=== PATIENT | female | born 1995 | race Caucasian/White ===

== ENCOUNTER 2019-08-17 11:07 | Emergency (ER) | payer BC ==
--- NOTE | 2019-08-17 12:02 | EDM.PDOC ---
ED HPI GENERAL MEDICAL PROBLEM - General Chief Complaint: Respiratory Problem Stated Complaint: FEVER Time Seen by Provider: 08/17/19 11:26 Source of Information: Reports: Patient History Limitations: Reports: No Limitations - History of Present Illness INITIAL COMMENTS - FREE TEXT/NARRATIVE: The patient presents with a cough. This has been going on for over a week. Her son had influenza a couple weeks ago. She has no fever now but she did earlier in the week. She has no shortness of breath. She has no congestion or runny nose. She has no abdominal pain, nausea or vomiting. She has no history of asthma. She does not smoke but she does vape. Onset: Gradual Duration: Week(s): Severity: Moderate Improves with: Reports: None Worsens with: Reports: None Associated Symptoms: Reports: Cough. Denies: Chest Pain, Fever/Chills, Headaches, Nausea/Vomiting, Shortness of Breath Upper Abdomen Pain Score (Numeric/FACES): 6 - Related Data Allergies Allergy/AdvReac Type Severity Reaction Status Date / Time No Known Allergies Allergy Verified 08/17/19 11:21 Home Meds: Home Meds . [No Known Home Meds] 08/17/19 [History] Past Medical History - Past Health History Medical/Surgical History: Denies Medical/Surgical History ED ROS GENERAL - Review of Systems Review Of Systems: See Below Constitutional: Reports: No Symptoms HEENT: Reports: No Symptoms Respiratory: Reports: Cough. Denies: Shortness of Breath Cardiovascular: Reports: No Symptoms Endocrine: Reports: No Symptoms GI/Abdominal: Reports: No Symptoms ED EXAM, GENERAL - Physical Exam Exam: See Below Exam Limited By: No Limitations General Appearance: Alert, No Apparent Distress Ears: Normal External Exam, Normal Canal, Normal TMs Nose: Normal Inspection Throat/Mouth: Normal Inspection Head: Atraumatic, Normocephalic Neck: Normal Inspection Respiratory/Chest: No Respiratory Distress, Lungs Clear, Normal Breath Sounds Cardiovascular: Regular Rate, Rhythm, No Edema, No Murmur GI/Abdominal: Soft, Non-Tender, No Organomegaly, No Mass Back Exam: Normal Inspection Extremities: Normal Inspection Course - Vital Signs Last Recorded V/S: Last Vital Signs Temp 97.9 F 08/17/19 11:21 Pulse 82 08/17/19 11:21 Resp 16 08/17/19 11:21 BP 104/78 08/17/19 11:21 Pulse Ox 97 08/17/19 11:21 - Orders/Labs/Meds Orders: Active Orders 24 hr Category Date Time Status CXR [Chest 2V] [CR] Stat Exams 08/17/19 11:34 Taken - Re-Assessments/Exams Free Text/Narrative Re-Assessment/Exam: 08/17/19 12:01 I ordered a CXR and it looks good. I feel she has a viral URI. I will give her an albuterol inhaler from here. Departure - Departure Time of Disposition: 12:20 Disposition: Home, Self-Care 01 Condition: Good Clinical Impression: Viral URI - Discharge Information *PRESCRIPTION DRUG MONITORING PROGRAM REVIEWED*: No *COPY OF PRESCRIPTION DRUG MONITORING REPORT IN PATIENT JALYN: No Referrals: PCP,None [Primary Care Provider] - Forms: ED Department Discharge Additional Instructions: Take the over the counter medications like you were taking. Drink plenty of fluids. Take motrin or tylenol for any fever. Try the albuterol 2 puffs every 6 hours as needed for shortness of breath. Please return if you are worse. Sepsis Event Note - Evaluation Sepsis Screening Result: No Definite Risk - Focused Exam Vital Signs: Vital Signs Temp Pulse Resp BP Pulse Ox 08/17/19 11:21 97.9 F 82 16 104/78 97 Date Exam was Performed: 08/17/19 Time Exam was Performed: 12:14 - My Orders Last 24 Hours: My Active Orders 08/17/19 11:34 CXR [Chest 2V] [CR] Stat - Assessment/Plan Last 24 Hours: My Active Orders 08/17/19 11:34 CXR [Chest 2V] [CR] Stat
[2019-08-17] MEDS ORDERED: Albuterol 6.7 GM Inhaler INH ONE (12:14)
--- NOTE | 2019-08-18 07:25 | CR ---
Chest: PA and lateral views of the chest were obtained. Comparison: No prior chest imaging. Heart size and mediastinum are normal. Lungs are clear. Bony structures are unremarkable. Impression: 1. Nothing acute is seen on two-view chest x-ray. Diagnostic code #1 This report was dictated in [place] Standard Time
== END 2019-08-17 12:35 | disposition home or self-care (01) ==
LOC: JD.ED 11:07
DX: J06.9 Acute upper respiratory infection, unspecified (principal)
CPT/HCPCS: 71046; 94640; 99283; A9270; 99281

== ENCOUNTER 2022-01-03 18:20 | Emergency (ER) | payer BC ==
[2022-01-03 21:06] LABS: C. TRACHOMATIS BY PCR NOT DETECTED; N. GONORRHOEAE BY PCR NOT DETECTED
== END 2022-01-03 21:25 | disposition home or self-care (01) ==
LOC: JD.ED 18:20
DX: O23.591 Infection of other part of genital tract in pregnancy, first trimester (principal); B96.89 Other specified bacterial agents as the cause of diseases classified elsewhere; Z3A.10 10 weeks gestation of pregnancy
CPT/HCPCS: 36415; 80053; 81001; 85025; 87210; 87491; 87591; 87808; 99283

== ENCOUNTER 2022-07-17 21:20 | Inpatient (IN) | payer MEDICAID ==
[2022-07-17] MEDS ORDERED: Sodium Chloride 0.9% 10 ML Syringe FLUSH PRN (22:23)
[2022-07-17] MEDS ORDERED: Ondansetron 4 MG/2 ML SDV IVPUSH PRN (22:23)
[2022-07-17] MEDS ORDERED: Lidocaine 1% 50 ML MDV INJECT ONE (22:23)
[2022-07-17] MEDS ORDERED: Nalbuphine HCl 10 MG/ 1ML Amp IVPUSH PRN (22:23)
[2022-07-17] MEDS ORDERED: Oxytocin/Lactated Ringers 10 UNIT/1,000 ML BAG IV SCH (22:30)
[2022-07-17] MEDS ORDERED: fentaNYL 100 MCG/2 ML SDV EPIDUR PRN (22:53)
[2022-07-17] MEDS ORDERED: Bupivacaine/fentaNYL/NS 100 ML Bag EPIDUR PRN (22:53)
[2022-07-17] MEDS ORDERED: ePHEDrine 50 MG/ML SDV IVPUSH PRN (22:53)
[2022-07-17] MEDS ORDERED: diphenhydrAMINE 50 MG/ML SDV IVPUSH PRN (22:53)
[2022-07-17] MEDS: Lactated Ringers 1,000 ML IV SCH ×2 (23:05→23:55)
[2022-07-18] MEDS: Lactated Ringers 1,000 ML IV SCH (03:55)
[2022-07-18] MEDS ORDERED: Lidocaine 1% 10 ML MDV ONE (04:00)
[2022-07-18] MEDS ORDERED: Oxytocin/Lactated Ringers 10 UNIT/1,000 ML BAG IV SCH (04:15)
[2022-07-18] MEDS ORDERED: Sodium Chloride 0.9% 10 ML Syringe FLUSH SCH (09:00)
[2022-07-18] MEDS ORDERED: Docusate Sodium 100 MG Cap PO PRN (09:30)
[2022-07-18] MEDS ORDERED: Witch Hazel Medicated Pads 40/Jar TOP PRN (09:30)
[2022-07-18] MEDS ORDERED: Ibuprofen 600 MG Tab PO PRN (09:30)
[2022-07-18] MEDS ORDERED: Benzocaine/Menthol 20%-0.5% Spray 78 GM Cannister TOP PRN (09:30)
[2022-07-18] MEDS ORDERED: Acetaminophen 325 MG Tab PO PRN (09:30)
[2022-07-18] MEDS: Prenatal Multivitamin with Calcium/Folic Acid/Iron Tab PO SCH (11:58)
[2022-07-19] MEDS: Prenatal Multivitamin with Calcium/Folic Acid/Iron Tab PO SCH (08:57)
== END 2022-07-19 13:29 | disposition home or self-care (01) | DRG 807 ==
LOC: JD.OBCHECK 21:20 → JD.OB 21:28 → JD.OBCHECK 22:26 → JD.OB 07-18 00:21 → OBSVTOIN 07-18 07:16 → JD.OB 07-18 07:17
PROVIDERS: ADMIT Obstetrics & Gynecology; ATTEND Obstetrics & Gynecology
PROC: 10907ZC Drainage of Amniotic Fluid, Therapeutic from Products of Conception, Via Natural or Artificial Opening (ICD-10-PCS; principal; 2022-07-18)
PROC: 10E0XZZ Delivery of Products of Conception, External Approach (ICD-10-PCS; 2022-07-18)
PROC: 3E0R3BZ Introduction of Anesthetic Agent into Spinal Canal, Percutaneous Approach (ICD-10-PCS; 2022-07-18)
PROC: 0HQ9XZZ Repair Perineum Skin, External Approach (ICD-10-PCS; 2022-07-18)
DX: O99.02 Anemia complicating childbirth (principal); Z37.0 Single live birth; D64.9 Anemia, unspecified; Z3A.38 38 weeks gestation of pregnancy; Z86.16 Personal history of COVID-19; Z87.891 Personal history of nicotine dependence; O76 Abnormality in fetal heart rate and rhythm complicating labor and delivery; O35.EXX0 Maternal care for other (suspected) fetal abnormality and damage, fetal genitourinary anomalies, not applicable or unspecified; O70.0 First degree perineal laceration during delivery
CPT/HCPCS: 36415; 51702; 59025; 59409; 85025; 86592; 86850; 86900; 86901; A9270-GY; J2405; J2590; J3010; J7120